=== PATIENT | male | born 1950 | race Caucasian/White ===

== ENCOUNTER → 2023-12-16 08:53 | Outpatient (REF) | payer MEDICARE, SELFPAY | LOC: RAD 08:53 | PROVIDERS: ATTENDING PHYSICIAN Family Medicine | DX: I10 Essential (primary) hypertension (principal); Z92.241 Personal history of systemic steroid therapy; M85.88 Other specified disorders of bone density and structure, other site | CPT/HCPCS: 77080 ==

== ENCOUNTER → 2024-01-13 11:13 | Outpatient (REF) | payer MEDICARE, SELFPAY | LOC: RAD 11:13 | PROVIDERS: ATTENDING PHYSICIAN Family Medicine | DX: M54.2 Cervicalgia (principal) | CPT/HCPCS: 72050 ==

== ENCOUNTER 2024-01-31 13:30 | Emergency (ER) | payer MEDICARE, SELFPAY ==
[2024-01-31 13:36] VITALS: BP 126/64
--- NOTE | 2024-01-31 14:33 | ED.GENMED ---
History of Present Illness
General
Chief Complaint: Musculo-Skeletal Complaint
Source: patient
Exam Limitations: none
Time Seen by Provider: 01/31/24 14:07
History of Present Illness
History of Present Illness:
The patient presents to ED secondary to worsening right knee pain after twisting his knee when shoveling snow 2 days ago. Denies falling down. Denies direct trauma. Denies loss of sensation or weakness. Unfortunately, patient has had chronic
right knee pain, which has required multiple surgeries. In fact patient was evaluated by different orthopedic surgeon recently who recommended another procedure to reduce pain along with swelling. Denies fever or chills. Denies loss of sensation
or weakness.
Past History
Past History
ED Past Medical History: Other (Diverticulosis, PMR, cataract surgery, hypertension, valvular disease which sounds like aortic insufficiency)
Review of Systems
Review of Systems
Allergies reviewed?: Yes
Constitutional: Reports no symptoms; Denies fever
Musculoskeletal: Reports other (knee pain)
Skin: Reports no symptoms
Neurological: Reports no symptoms
Phy Exam
Physical Exam
Physical Exam:
Physical Exam
General: no apparent distress, not acutely ill. afebrile.
Head: nc/at. eomi
Neck: supple. normal range of motion.
Neuro: alert and oriented x 3. no focal neurological deficits
Skin: no rash
Psychiatric: well kept. interactive and cooperative
Extremities: well healed surgical scar noted over right patella with mild swelling. no warmth/erythema/ecchymosis noted
Course
Orders/Labs/Results
Orders:
Orders
01/31/24 13:41
Knee, Right 4 or More Views [CR Knee- Right 4 Or More View*] Urgent
Comment:
Reason For Exam: pain
01/31/24 14:23
Oxycodone/Acetaminophen [Percocet 5/325] 1 tablet PO NOW STA
Vital Signs
Initial and Last Documented VS:
Initial Vital Signs
Temp Pulse Resp BP Pulse Ox
98.8 F 86 18 126/64 97
01/31/24 13:36 01/31/24 13:36 01/31/24 13:36 01/31/24 13:36 01/31/24 13:36
Last Documented Vital Signs
Temp Pulse Resp BP Pulse Ox
98.8 F 86 18 126/64 97
01/31/24 13:36 01/31/24 13:36 01/31/24 13:36 01/31/24 13:36 01/31/24 13:36
MDM/Problems Addressed
MDM/Problems Addressed:
X-ray: no acute findings.
Pt will be discharged home in stable condition, with recommendation to f/u with an orthopaedic surgeon for re-evaluation, including surgical approach vs office based thoracentesis, if swelling increases. Otherwise no indiction for urgent procedure,
as range of motion, though limited, can be performed.
*Critical Care Note
Total Time (30-74mins, 75-104mins- exclusive of procedures): Not Applicable
ED Attending Note
-
Portions of this chart may have been created with voice recognition software.� Occasional wrong word or��sound alike� substitutions may have occurred due to the inherent limitations of voice recognition software.
Discharge Plan
Departure
Patient Disposition: Home (Routine Discharge)
Date of Disposition: 01/31/24
Time of Disposition: 15:04
Patient with high blood pressure during this ER visit?: Yes
Condition: Good
Discharge Problem:
Knee strain
Instructions: Knee Sprain (DC)
Prescriptions:
New
oxycodone-acetaminophen [Percocet] 5-325 mg Tablet
1 tab PO Q6HPRN PRN (Reason: pain) Qty: 8 0RF
No Action
prednisone 5 MG tablet
15 mg PO DAILY
lisinopril 10 MG tablet
10 mg PO DAILY
docosahexaenoic acid-epa 1 CAP capsule
1 cap PO DAILY
multivitamin with folic acid [Tab-A-Manuel] 1 TABLET tablet
1 tab PO DAILY
zolpidem 5 MG tablet
5 mg PO HSPRN PRN (Reason: sleep)
levofloxacin 500 MG tablet
500 mg PO DAILY Qty: 12 0RF
metronidazole 500 MG tablet
500 mg PO Q8 Qty: 36 0RF
Referrals:
Abigail Gilliland MD [Family Provider] -
Activity Restrictions/Additional Instructions:
As discussed, please follow-up with your primary care physician and/or orthopedic surgeon for further evaluation and treatment. In ED, x-ray did not reveal any acute abnormal findings. At home, strongly recommend continue ice application along
with leg elevation, as well as nonweightbearing of your affected leg. Your prescription has been sent electronically to [facility] pharmacy in [place].
Interventions
Interventions:
*Risk Screen - Suicide Last Done: 01/31/24 13:36
*General Assessment Last Done: 01/31/24 13:36
*Neglect/Abuse Screening Last Done: 01/31/24 13:36
*Nursing Disposition Last Done: 01/31/24 15:41
ED-Musculoskeletal Assessment Last Done: 01/31/24 13:50
Discharge Date and Time
Discharge Date/Time: 01/31/24 15:42
Print Language: WELSH
[2024-01-31] MEDS: PERCOCET 5/325 1 TABLET PO (14:43)
== END 2024-01-31 15:42 | disposition home or self-care (01) ==
LOC: EMR 13:30
PROVIDERS: EMERGENCY PHYSICIAN Emergency Medicine; FAMILY PHYSICIAN Family Medicine
DX: S83.91XA Sprain of unspecified site of right knee, initial encounter (principal); X50.1XXA Overexertion from prolonged static or awkward postures, initial encounter; I10 Essential (primary) hypertension
CPT/HCPCS: 99283; 73564